=== PATIENT | female | born 1970 | race Caucasian/White ===

== ENCOUNTER → 2017-01-21 | Emergency (ER) | payer OTHER ==
[~2017-01-21] VITALS: Ht 172.7 cm; Wt 96.2 kg
[~2017-01-21] MED LIST: AMBIEN10 M1; ANAPROX DS550 MG PO; BIAXIN500 MG PO; CLARITIN10 MG PO; CLINDAMYCIN HC300 MG PO; DIFLUCAN150 MG PO; EES400 MG PO; FLONASE0.05 MG/AC NS; IMITREX50 MG; LISINOPRIL/HCTZ1 TA3; Motrin,Rufen800 MG PO; NAPROSYN375 MG; PERCOCET 325 MG1 TA2 PO; PROTONIX40 MG; PROVENTIL0.09 MG/AC IH; REGLAN5 MG; TRAMADOL HCL50 MG PO; VICODIN ES 7501 TAB PO; ZOLOFT50 MG
== END ==
LOC: ED 15:12
DX: K02.9 Dental caries, unspecified (principal); Z88.0 Allergy status to penicillin; Z88.2 Allergy status to sulfonamides; Z79.899 Other long term (current) drug therapy

== ENCOUNTER → 2023-04-12 | Outpatient (CLI) | payer BC | END | disposition home or self-care (01) | LOC: US 13:44 | PROVIDERS: ATTEND Nurse Practitioner Women's Health | DX: N88.8 Other specified noninflammatory disorders of cervix uteri (principal); N85.2 Hypertrophy of uterus; N85.8 Other specified noninflammatory disorders of uterus; N94.89 Other specified conditions associated with female genital organs and menstrual cycle; D25.9 Leiomyoma of uterus, unspecified ==